=== PATIENT | male | born 1985 | race Caucasian/White ===

== ENCOUNTER 2017-03-05 14:56 | Emergency (ER) | payer MEDICAID, OTHER ==
[~2017-03-05] VITALS: Ht 170.2 cm; Wt 106.0 kg
[~2017-03-05 14:56] MED LIST: INDO25CA25; INDO25CA25 PO
[2017-03-05 15:00] VITALS: Ht 170.2 cm; Wt 106.0 kg
[2017-03-05] MEDS ORDERED: ACETAMINOPHEN 325 MG TAB PO ONE (16:00)
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
[2017-03-05] MEDS ORDERED: ACET500C5 PO (18:02)
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
== END 2017-03-05 18:09 | disposition home or self-care (01) ==
LOC: FTE 14:56
DX: S33.5XXA Sprain of ligaments of lumbar spine, initial encounter (principal); S13.9XXA Sprain of joints and ligaments of unspecified parts of neck, initial encounter; R42 Dizziness and giddiness; V89.2XXA Person injured in unspecified motor-vehicle accident, traffic, initial encounter
CPT/HCPCS: 70450; 72040; 72100; Z7502; Z7610

== ENCOUNTER 2017-09-09 13:39 | Emergency (ER) | END 2017-09-09 17:44 | disposition home or self-care (01) ==

== ENCOUNTER 2017-10-16 09:57 | Emergency (ER) | END 2017-10-16 10:53 | disposition home or self-care (01) ==